=== PATIENT | male | born 1975 | race Hispanic/Latino ===

== ENCOUNTER 2017-06-30 10:25 | Emergency (ER) | payer SELFPAY ==
[~2017-06-30] VITALS: Ht 172.7 cm; Wt 72.0 kg
[2017-06-30 12:46] VITALS: BP 135/71
== END 2017-06-30 12:50 | disposition home or self-care (01) | DRG 951 ==
LOC: ED 10:25
DX: Z48.02 Encounter for removal of sutures (principal)